=== PATIENT | female | born 1955 | race African-American/Black ===

== ENCOUNTER → 2016-06-14 | Outpatient (CLI) | payer OTHER ==
[~2016-06-14] MED LIST: ANASTROZOLE1 MG PO; ASPIR-LOW81 MG PO; B-COMPLEX-VITA1 EACH PO; GABAPENTIN100 MG PO; GLIMEPIRIDE2 MG PO; GLUCOPHAGE500 MG PO; HYZAAR 50-121 TABLET PO; METFORMIN HCL500 MG PO; NORVASC10 MG PO; NORVASC5 MG PO; REQUIP0.5 MG PO; ROPINIROLE HCL1 MG PO; SIMVASTATIN10 MG PO; VITAMIN B12-FO1 EACH PO; VITAMIN D2000 INTUN PO
[2016-06-14 09:02] LABS: POINT-OF-CARE METER ID UU13113694
[2016-06-14 09:27] LABS: ANION GAP 9 MEQ/L (2-14); CHLORIDE 100 MEQ/L (99-109); POTASSIUM 3.9 MEQ/L (3.7-5.4); SAMPLE HEMOLYSIS CHECK 0; SAMPLE ICTERIC CHECK 0; SAMPLE LIPEMIA CHECK 0; SODIUM 138 MEQ/L (136-147)
[2016-06-14 09:33] LABS: GFR ESTIMATE (CALCULATED) > 59 mL/min/; GLUCOSE 110 mg/dL (70-99); UREA NITROGEN (BUN) 15 mg/dL (9-23)
[2016-06-14 11:11] LABS: POINT-OF-CARE METER ID UU13113675; POINT-OF-CARE USER ID 515036437
== END | disposition home or self-care (01) ==
LOC: AMB 08:00
PROVIDERS: Anesthesiology; Internal Medicine Gastroenterology
DX: K22.8 Other specified diseases of esophagus (principal); K80.50 Calculus of bile duct without cholangitis or cholecystitis without obstruction; K29.70 Gastritis, unspecified, without bleeding; I10 Essential (primary) hypertension; E11.9 Type 2 diabetes mellitus without complications; Z79.82 Long term (current) use of aspirin; I89.0 Lymphedema, not elsewhere classified; D05.90 Unspecified type of carcinoma in situ of unspecified breast
CPT/HCPCS: 80048; 82948; 88305; 88342 TC; 93005; C1726; J0330; J1100; J2405; J3010

== ENCOUNTER 2017-03-09 17:47 | Emergency (ER) | payer BC ==
[~2017-03-09] VITALS: Ht 157.5 cm; Wt 93.3 kg
[2017-03-09 19:34] LABS: HEMATOCRIT 36.4 % (36.0-46.0); MCH 27.1 PG (29.0-34.0); MCHC 33.5 G/DL (30.0-36.0); MCV 80.7 FL (83-99); MEAN PLAT.VOLUME 9.9 uM^3 (9.5-12.4); PLATELET COUNT 262 K/uL (156-360); RBC DIS.WIDTH-CV 12.1 % (11.8-14.6); RBC DIS.WIDTH-SD 35.6 % (39-53); RED BLOOD COUNT 4.51 M/uL (3.80-5.20); WHITE BLOOD COUNT 4.6 K/uL (4.1-10.2)
[2017-03-09 19:43] LABS: CHLORIDE 103 mEq/L (99-109); SODIUM 139 mEq/L (136-147)
[2017-03-09 19:45] LABS: GLUCOSE 115 mg/dL (70-99)
[2017-03-09 19:46] LABS: ANION GAP 9 MEQ/L (2-14)
[2017-03-09 19:47] LABS: PROTHROMBIN TIME 11.5 SEC (10.2-12.9)
[2017-03-09 19:49] LABS: GFR ESTIMATE (CALCULATED) > 59 mL/min/
[2017-03-09 19:50] LABS: PTT 31.9 SEC (25-37); UREA NITROGEN (BUN) 14 mg/dL (9-23)
[2017-03-09 19:56] LABS: TROP-I INTERPRETATION NEGATIVE; TROPONIN-I 0.02 ng/mL (0.0-0.30)
[2017-03-09] MEDS ORDERED: METFORMIN HCL500 MG PO (21:15)
[2017-03-09] MEDS ORDERED: ERGOCALCIF50000 UNIT PO (21:15)
[2017-03-09] MEDS ORDERED: AMLODIPINE BESYL5 MG PO (21:15)
[2017-03-09] MEDS ORDERED: LOSARTAN-HCTZ1 EAC1 PO (21:15)
[2017-03-09] MEDS ORDERED: SIMVASTATIN10 MG PO (21:15)
[2017-03-09 21:37] VITALS: BP 200/90
== END 2017-03-09 21:37 | disposition home or self-care (01) ==
LOC: EME 17:47
PROVIDERS: Physician Assistant
DX: Z76.0 Encounter for issue of repeat prescription (principal); I10 Essential (primary) hypertension; G20 Parkinson's disease; E78.00 Pure hypercholesterolemia, unspecified; E55.9 Vitamin D deficiency, unspecified; E11.9 Type 2 diabetes mellitus without complications; F41.9 Anxiety disorder, unspecified; F32.9 Major depressive disorder, single episode, unspecified; Z85.9 Personal history of malignant neoplasm, unspecified; Z79.84 Long term (current) use of oral hypoglycemic drugs; Z79.82 Long term (current) use of aspirin; Z88.5 Allergy status to narcotic agent; Z88.1 Allergy status to other antibiotic agents; Z88.8 Allergy status to other drugs, medicaments and biological substances
CPT/HCPCS: 70450; 71020; 80048; 84484; 85027; 85610; 85730; 93005; 99281; 99283